=== PATIENT | female | born 1990 | race Caucasian/White ===

== ENCOUNTER 2022-03-12 21:04 | Inpatient (IN) | payer MEDICAID ==
[~2022-03-12] VITALS: Ht 160 cm; Wt 70.0 kg
[2022-03-12] MEDS ORDERED: ONDANSETRON HCL 4MG/2ML INJ IV ONE (22:15)
[2022-03-12] MEDS ORDERED: ACETAMINOPHEN 325MG TABLET PO PRN (22:15)
[2022-03-12] MEDS ORDERED: MORPHINE SULFATE 4 MG/ML CPJ (NOT FOR IM USE) IV ONE (22:30)
[2022-03-13 00:21] LABS: BASOPHILS % 0.1 % (0.0-2.0); EOSINOPHILS % 0.3 % (0.0-5.0); HEMATOCRIT. 42.2 % (36.0-48.0); HEMOGLOBIN. 14.4 g/dL (12.0-16.0); LYMPHOCYTES % 9.7 % (20.0-50.0); MEAN CORPUSCULAR HEMOGLOBIN 28.9 pg (28.0-32.0); MEAN CORPUSCULAR VOLUME 84.5 fL (81.0-99.0); MEAN PLATELET VOLUME 8.8 fl (7.4-10.4); MONOCYTES % 4.9 % (2.0-8.0); PLATELET 237 x1000/uL (130-400); RED BLOOD CELL COUNT 4.99 mill/uL (4.2-5.4); RED CELL DISTRIBUTION WIDTH 16.7 % (11.6-14.6)
[2022-03-13 00:30] LABS: CHLORIDE 105 mEq/L (98-107)
[2022-03-13] MEDS ORDERED: PIPERACILLIN/TAZOBACTAM 3.375GM/50ML PREMIX IV NR (00:30)
[2022-03-13 00:55] LABS: B-HCG QUANTITATIVE 33943 mIU/mL (<3)
[2022-03-13] MEDS ORDERED: SODIUM CHLORIDE 0.9% 1,000 ML IV ONE ×2 (01:15)
[2022-03-13] MEDS ORDERED: MORPHINE SULFATE 4 MG/ML CPJ (NOT FOR IM USE) IV ONE (03:00)
[2022-03-13 05:30] VITALS: BP 109/62
[2022-03-13] MEDS ORDERED: BUPIVACAINE HCL/PF 0.5% (5MG/ML) 10ML ONE (06:12)
[2022-03-13] MEDS ORDERED: SKIN ADHESIVE 0.7 GM EA TOP ONE (06:12)
[2022-03-13] MEDS ORDERED: PROPOFOL 200MG/20ML VIAL IV ONE (06:24)
[2022-03-13] MEDS ORDERED: ROCURONIUM BROMIDE 10MG/ML VIAL 5ML IV ONE (06:26)
[2022-03-13] MEDS ORDERED: SUCCINYLCHOLINE CHLORIDE 200MG/10ML IV ONE ×2 (06:54→07:00)
[2022-03-13] MEDS ORDERED: ONDANSETRON HCL 4MG/2ML INJ ONE (07:00)
[2022-03-13] MEDS ORDERED: FENTANYL CITRATE/PF 50MCG/ML 2ML VIAL IV PRN (07:00)
[2022-03-13] MEDS ORDERED: DEXAMETHASONE 4MG/ML 1ML VIAL ONE (07:00)
[2022-03-13] MEDS ORDERED: CEFAZOLIN SODIUM 1000MG/VIAL ONE (07:00)
[2022-03-13] MEDS ORDERED: ACETAMINOPHEN 650MG SUPP PR NR (07:30)
== END 2022-03-13 09:55 | disposition home or self-care (01) | DRG 547 ==
LOC: ER 21:04 → 6EST 03-13 02:12 → EDBEDREQTM 03-13 02:24 → EDBEDREQ 03-13 02:24 → ENRESERV 03-13 08:23
PROVIDERS: ADMIT Internal Medicine; ATTEND Internal Medicine
PROC: 0DTJ4ZZ Resection of Appendix, Percutaneous Endoscopic Approach (ICD-10-PCS; principal; 2022-03-13)
DX: O99.612 Diseases of the digestive system complicating pregnancy, second trimester (principal); K35.80 Unspecified acute appendicitis; Z20.822 Contact with and (suspected) exposure to COVID-19; Z3A.15 15 weeks gestation of pregnancy
CPT/HCPCS: 36415; 76805; 76857; 80053; 84702; 85025; 86850; 86900; 87426; 88304; 99285; J0330; J0690; J1100; J2270; J2405; J2543; J2704; J3490; J7030